=== PATIENT | male | born 1975 | race Caucasian/White ===

== ENCOUNTER 2020-07-24 22:33 | Emergency (ER) | payer SELFPAY ==
[2020-07-24 22:38] VITALS: BP 193/132; PULSE 114; RESP 19; TEMP 37.3; O2SAT 100; BMI 27.3
--- NOTE | 2020-07-24 22:41 | CTR_ITS ---
PROCEDURE INFORMATION: Exam: CT Head Without Contrast Exam date and time: 07/24/2020 11:23 PM Age: 45 years old Clinical indication: Condition or disease; Convulsions or seizures; Unspecified; Patient HX: New onset seizure activity TECHNIQUE: Imaging protocol: Computed tomography of the head without contrast. Radiation optimization: All CT scans at this facility use at least one of these dose optimization techniques: automated exposure control; mA and/or kV adjustment per patient size (includes targeted exams where dose is matched to clinical indication); or iterative reconstruction. COMPARISON: No relevant prior studies available. RADIATION DOSE METRICS: Total DLP (mGy-cm): 902.15 FINDINGS: Brain: No acute intracranial hemorrhage or mass effect. No definite acute infarct by CT. MRI could be more sensitive/specific for detection, as clinically directed. Cerebral ventricles: Ventricle size is normal for age. Bones/joints: No definite acute skull fracture. Paranasal sinuses: Included paranasal sinuses are essentially clear. Mastoid air cells: No significant acute finding. CT/CT head wo con* [id number] IMPRESSION: 1. No acute intracranial hemorrhage or mass effect. 2. No definite acute infarct by CT, see above. 3. Other findings discussed above. Radiation Dose CTDIVOL = (mGy): DLP = 902.15 (mGy-cm)
[2020-07-24 22:42] VITALS: PULSE 113; RESP 22; O2SAT 100
--- NOTE | 2020-07-24 22:42 | ECG_ITS ---
[facility] Test Date: 2020-07-24 Pat Name: Romel Joyce Department: Room: Gender: Male [employer] Floor [employer] Wall Applier: : 1975 Requested By: Jalen Smith Order Number: [id number] Myriam MD: Ed Bagley M.D. Measurements Intervals [place] Rate: 103 P: 39 NC: 176 QRS: 23 QRSD: 87 T: -12 QT: 351 QTc: 461 Interpretive Statements SINUS TACHYCARDIA MODERATE VOLTAGE CRITERIA FOR LVH, CONSIDER NORMAL VARIANT [MEETS CRITERIA IN ONE OF: R(aVL), S(V1), R(V5), R(V5/V6)+S(V1)] POSSIBLE SEPTAL MYOCARDIAL INFARCTION , OF INDETERMINATE AGE [30 ms Q WAVE IN V1/V2] No previous ECG available for comparison Electronically Signed On 07-25-2020 16:18:48 CDT by Ed Bagley M.D. [id number]
--- NOTE | 2020-07-24 22:47 | ED_ITS ---
HPI - Seizure General: Chief Complaint: Seizure Stated Complaint: seizure and HTN Time Seen by Provider: 07/24/20 22:34 Source: patient and EMS Mode of arrival: EMS Limitations: no limitations History of Present Illness: HPI Narrative: 45-year-old male who states that he was at home and had a seizure roughly an hour and a half ago. He has no history of seizures. He states he do not remember before after he describes waking up in EMS being there. He denies any headache or chest pain. States he feels improved currently. He has had no recent illness denies any vomiting or diarrhea. He does have a history of high blood pressure. Seizure History: No Place: Home Associated symptoms: Deny chest pain, chills or fever(s) Review of Systems Const: Denies: fever(s), chills, body aches or change in appetite Eyes: Denies: blurry vision or eye discomfort ENMT: Denies: throat pain or dental pain Card: Denies: chest pain Resp: Denies: dyspnea GI: Denies: abdominal pain, nausea, vomiting or diarrhea : Denies: dysuria Musc: Denies: neck pain or back pain Skin/Breast: Denies: rash Neuro: Reports: seizure-like activity; Denies: headache(s) Psych: Denies: depression Rafi/Lymph: Denies: easy bruising All/Imm: Denies: urticaria PFSH ED PFSH: Family History Father Hypertension Social History Smoking and tobacco status: current every day smoker cigarettes Packs smoked per day: 0.5 Second hand smoke exposure: Yes Smoking risk assessment/counseling performed?: No Alcohol intake: never Desire information about alcohol rehabilitation?: No Counseling given: No Desire information about substance/drug rehabilitation?: No Counseling given: No Adopted: No Caregiver/support person: No Lives independently: Yes Household members: significant other Housing: House Marital status: Single Number of children: 0 Highest education level completed: Some College, No Degree service: No Current occupational status: unemployed History of recent travel: No Physical Exam Const: COMMON NORMALS: no acute distress, patient oriented x3 and healthy appearing HENMT: COMMON NORMALS: normocephalic and atraumatic HEAD & SCALP: normocephalic and atraumatic Eye: COMMON NORMALS: Equal, round and reactive pupils present and EOMs intact bilaterally PUPIL: Yes Equal, round and reactive pupils present Neck/C-Spine: COMMON NORMALS: full ROM and supple Chest: COMMONS NORMALS: normal inspection of the chest and normal palpation of entire chest wall Resp: COMMON NORMALS: normal respiratory effort, No retractions, No use of accessory muscles and clear to auscultation bilaterally AUSCULTATION: clear to auscultation bilaterally Cardio: COMMON NORMALS: regular rate, regular rhythm and No murmurs present (Cardio) RATE: regular rate RHYTHM: regular rhythm GI: COMMON NORMALS: Normal to inspection, nondistended, normoactive bowel sounds present, Soft to palpation, non-tender and no masses PALPATION: Yes Soft to palpation Extremity: COMMON NORMALS: normal to inspection and full ROM Neuro: COMMON NORMALS: patient oriented x3, moves all extremities and no focal motor deficits Psych: COMMON NORMALS: mental status grossly normal, Normal thought process present and cooperative THOUGHT PROCESS: Normal thought process present Skin: COMMON NORMALS: no rashes or lesions noted and no wounds GENERAL SKIN EXAM: no rashes or lesions noted Course Vital Signs: Vital signs: Vital Signs Temperature 99.1 F 07/24/20 22:38 Pulse Rate 85 07/25/20 00:27 Respiratory Rate 23 H 07/25/20 00:27 Blood Pressure 160/113 07/25/20 00:27 Pulse Oximetry 95 07/25/20 00:27 MDM - Seizure MDM Narrative: Medical decision making narrative: Patient presents here with new onset seizure. He has been well-appearing here and seizure-free. He does have some hypertension which is improved here with labetalol and I will increase his amlodipine at home. EKG and CT head is normal. He is to follow-up his PCP and return if worsening. He understands agrees to plan. Lab Data: Labs: Lab Results 07/24/20 Range/Units 23:00 Sodium 134 L (136-145) mmol/L Potassium 3.5 (3.5-5.1) mmol/L Chloride 98 (98-107) mmol/L Carbon Dioxide 20 L (22-29) mmol/L Anion Gap 19.5 H (5-19) BUN 11 (6-20) mg/dL Creatinine 0.6 L (0.7-1.2) mg/dL GFR Calculation 147.0 H (90-130) mL/min Glucose 118 H (65-115) mg/dL Calculated Osmolal ity 278 L (285-295) mOsm/k g Calcium 8.7 (8.5-10.5) mg/dL Total Bilirubin 2.4 H (0.15-1.2) mg/dL AST 195 H (0-40) U/L ALT 157 H (0-41) U/L Alkaline Phosphata se 117 (40-130) IU/L Total Protein 7.6 (6.6-8.7) g/dL Albumin 3.9 (3.5-5.2) g/dL Globulin 3.7 (1.3-4.6) g/dL EKG Data^: EKG 1: Attestation: I personally reviewed and interpreted this EKG as follows: EKG interpretation date: 07/24/20 EKG interpretation time: 22:52 Interpretation: sinus tach hr [address] or t wave abnormalities qrs 87 qtc 411 Discharge Plan Discharge Patient Disposition: Home Clinical Impression: New onset seizure, Hypertension Condition: Stable Prescriptions: Changed amlodipine 10 mg tablet 20 mg PO DAILY 30 Days Qty: 30 RF: 0 No Action prazosin 2 mg capsule 2 mg PO BID 30 Days Qty: 30 RF: 2 quetiapine [Seroquel] 50 mg tablet 50 mg PO .bedtime 30 Days Qty: 30 RF: 0 Discharge Orders: Discharge ED (Routine); Ordered 07/25/20 Ordered By: Jalen Smith Discharge Diet: Advance as tolerated Discharge Activity: Resume usual activity Patient Instructions: New-Onset Seizure in Adults (ED) Coding Level of Care Code ED Electrical Equipment Assembler for Chg Fwd Exam Comprehensive
[2020-07-24 23:08] VITALS: BP 148/94; PULSE 85; RESP 20; O2SAT 99
[2020-07-24] MEDS: labetalol 5 mg/mL SDV 20mL 10 MG IVP (23:09)
[2020-07-24 23:10] VITALS: BP 148/94; PULSE 84; RESP 19; O2SAT 98
[2020-07-24 23:30] LABS: Alanine Aminotransferase 157 U/L (0-41); Albumin Level 3.9 g/dL (3.5-5.2); Alkaline Phosphatase 117 IU/L (40-130); Anion Gap 19.5 (5-19); Aspartate Amino Transferase 195 U/L (0-40); Blood Urea Nitrogen 11 mg/dL (6-20); Calcium 8.7 mg/dL (8.5-10.5); Carbon Dioxide 20 mmol/L (22-29); Chloride 98 mmol/L (98-107); Globulin 3.7 g/dL (1.3-4.6); Glucose 118 mg/dL (65-115); Osmolality Calculated 278 mOsm/kg (285-295); Potassium 3.5 mmol/L (3.5-5.1); Sodium 134 mmol/L (136-145); Total Bilirubin 2.4 mg/dL (0.15-1.2); Total Protein 7.6 g/dL (6.6-8.7)
[2020-07-25] VITALS: BP 160/113; PULSE 85; RESP 23; O2SAT 95
[2020-07-25 00:27] VITALS: BP 160/113; PULSE 85; RESP 23; O2SAT 95
== END 2020-07-25 00:28 | disposition home or self-care (01) ==
PROVIDERS: Emergency Provider Emergency Medicine
DX: R56.9 Unspecified convulsions (principal); I10 Essential (primary) hypertension; F17.210 Nicotine dependence, cigarettes, uncomplicated
CPT/HCPCS: 70450; 80053; 93005; 96374; 99284; J3490

== ENCOUNTER 2020-07-25 00:50 | Emergency (ER) | payer SELFPAY ==
[2020-07-25] VITALS (10 sets, daily range): BP systolic 148–173; BP diastolic 96–121; PULSE 81–108; RESP 18–25; O2SAT 94–96; BMI 25.7
--- NOTE | 2020-07-25 00:51 | CTR_ITS ---
PROCEDURE INFORMATION: Exam: CT Abdomen And Pelvis With Contrast Exam date and time: 07/25/2020 2:03 AM Age: 45 years old Clinical indication: Abdominal pain; Generalized; Prior surgery; Surgery date: 6+ months; Surgery type: Appy; Additional info: Abd pain TECHNIQUE: Imaging protocol: Computed tomography of the abdomen and pelvis with contrast. Radiation optimization: All CT scans at this facility use at least one of these dose optimization techniques: automated exposure control; mA and/or kV adjustment per patient size (includes targeted exams where dose is matched to clinical indication); or iterative reconstruction. Contrast material: OMNI 300; Contrast volume: 95 ml; Contrast route: INTRAVENOUS (IV); COMPARISON: No relevant prior studies available. RADIATION DOSE METRICS: Total DLP (mGy-cm): 1568.6 FINDINGS: Lungs: The lung bases are clear. Liver: There is fatty infiltration of the liver. Gallbladder and bile ducts: The gallbladder appears partially contracted. No visible gallstones by CT. Ultrasound would be more sensitive for detecting gallstones, if clinically needed. No biliary tree dilation. Pancreas: Unremarkable. Spleen: Unremarkable. Adrenal glands: Unremarkable. Kidneys and ureters: No hydronephrosis of either kidney. No visible ureteral calculus. No perinephric fluid. The kidneys enhance homogeneously Stomach and bowel: Possibility of slightly thickened mucosa/wall in the distal antrum of the stomach and proximal duodenum. This is a nonspecific appearance, and could well be transient on CT, but could also represent evidence for gastritis/duodenitis or peptic ulcer disease. Please correlate clinically. There are no CT findings to strongly suggest diverticulitis. Appendix: Reportedly, there has been prior appendectomy. Intraperitoneal space: No free air, ascites, or bowel distention. Vasculature: No evidence for abdominal aortic aneurysm. Lymph nodes: No retroperitoneal adenopathy. Urinary bladder: Possible mild to moderate diffuse urinary bladder wall thickening. This may be related to the prostate enlargement. While nonspecific, this could also indicate evidence for cystitis. Please correlate clinically. Reproductive: Prostate enlargement with transverse diameter of 4.7 cm. Bones/joints: No significant acute finding. Soft tissues: No significant acute finding. CT/CT abdomen pelvis w con* [id number] IMPRESSION: 1. No free air or bowel distention. 2. Possible thickened mucosa/wall in the distal stomach and proximal duodenum, see above discussion. 3. Partially contracted gallbladder, no visible gallstones by CT. 4. Prostate enlargement and urinary bladder wall thickening, see above. 5. Other findings discussed above. Radiation Dose CTDIVOL = (mGy): DLP = 1568.6 (mGy-cm)
--- NOTE | 2020-07-25 00:54 | W.ED.SEIZURE ---
HPI - Seizure General: Chief Complaint: Seizure Stated Complaint: seizure Time Seen by Provider: 07/25/20 00:51 Source: patient and family Mode of arrival: ambulatory Limitations: no limitations and altered mental status History of Present Illness: HPI Narrative: 45-year-old male who was seen here earlier for a seizure. He had been cleared here in driving home and had a seizure on his way home per . Patient had a tonic-clonic seizure and is currently postictal. He is diaphoretic and not able answer questions due to postictal. He does follow some commands and is alert at this time. He had never had a seizure before today. He said no recent illnesses. Seizure History: No Associated symptoms: Deny chest pain, chills or fever(s) Review of Systems Const: Denies: fever(s), chills, body aches or change in appetite Eyes: Denies: blurry vision or eye discomfort ENMT: Denies: throat pain or dental pain Card: Denies: chest pain Resp: Denies: dyspnea GI: Denies: abdominal pain, nausea, vomiting or diarrhea : Denies: dysuria Musc: Denies: neck pain or back pain Skin/Breast: Denies: rash Neuro: Reports: seizure-like activity Psych: Denies: depression Rafi/Lymph: Denies: easy bruising All/Imm: Denies: urticaria PFSH ED PFSH: Family History Father Hypertension Social History Smoking and tobacco status: current every day smoker cigarettes Packs smoked per day: 0.5 Second hand smoke exposure: Yes Smoking risk assessment/counseling performed?: No Alcohol intake: never Desire information about alcohol rehabilitation?: No Counseling given: No Desire information about substance/drug rehabilitation?: No Counseling given: No Adopted: No Caregiver/support person: No Lives independently: Yes Household members: significant other Housing: House Marital status: Single Number of children: 0 Highest education level completed: Some College, No Degree service: No Current occupational status: unemployed History of recent travel: No Physical Exam Const: COMMON NORMALS: healthy appearing; apparent distress and negative for patient oriented x3 OTHER: post ictal HENMT: COMMON NORMALS: normocephalic and atraumatic HEAD & SCALP: normocephalic and atraumatic Eye: COMMON NORMALS: Equal, round and reactive pupils present and EOMs intact bilaterally PUPIL: Yes Equal, round and reactive pupils present Neck/C-Spine: COMMON NORMALS: full ROM and supple Chest: COMMONS NORMALS: normal inspection of the chest and normal palpation of entire chest wall Resp: COMMON NORMALS: normal respiratory effort, No retractions, No use of accessory muscles and clear to auscultation bilaterally AUSCULTATION: clear to auscultation bilaterally Cardio: COMMON NORMALS: regular rate, regular rhythm and No murmurs present (Cardio) RATE: regular rate RHYTHM: regular rhythm GI: COMMON NORMALS: Normal to inspection, nondistended, normoactive bowel sounds present, Soft to palpation, non-tender and no masses PALPATION: Yes Soft to palpation Extremity: COMMON NORMALS: normal to inspection and full ROM Neuro: COMMON NORMALS: moves all extremities and no focal motor deficits; negative for patient oriented x3 Psych: COMMON NORMALS: cooperative; negative for mental status grossly normal Skin: COMMON NORMALS: no rashes or lesions noted and no wounds GENERAL SKIN EXAM: no rashes or lesions noted Course Vital Signs: Vital signs: Vital Signs Pulse Rate 82 07/25/20 02:54 Respiratory Rate 20 H 07/25/20 02:54 Blood Pressure 156/100 07/25/20 02:54 Pulse Oximetry 95 07/25/20 02:54 MDM - Seizure MDM Narrative: Medical decision making narrative: Patient presents here with seizure. He was seen here earlier with a seizure. Patient's been observed. He has had no other seizures. His blood work and CTs were normal. We will start him on Keppra now and follow-up with neurology. He is return if worsening. Imaging Data^: CT Abd/Pel: Attestation: I personally reviewed and interpreted this imaging study as follows: Radiologist's impression: [address] [place] [address] CT Scan Report Signed Patient: Romel Joyce Unit #: [id number] : 1975 Age/Sex: 45 / M ADM Date: 07/25/20 Loc: ER Room/Bed: Attending Dr: Ordering Provider/Ordering MD: Jalen Smith MD Date of Service: 07/25/20 Procedure(s): CT abdomen pelvis w con* [id number] Accession Number(s): [id number] Report Number: [id number] PROCEDURE INFORMATION: Exam: CT Abdomen And Pelvis With Contrast Exam date and time: 07/25/2020 2:03 AM Age: 45 years old Clinical indication: Abdominal pain; Generalized; Prior surgery; Surgery date: 6+ months; Surgery type: Appy; Additional info: Abd pain TECHNIQUE: Imaging protocol: Computed tomography of the abdomen and pelvis with contrast. Radiation optimization: All CT scans at this facility use at least one of these dose optimization techniques: automated exposure control; mA and/or kV adjustment per patient size (includes targeted exams where dose is matched to clinical indication); or iterative reconstruction. Contrast material: OMNI 300; Contrast volume: 95 ml; Contrast route: INTRAVENOUS (IV); COMPARISON: No relevant prior studies available. RADIATION DOSE METRICS: Total DLP (mGy-cm): 1568.6 FINDINGS: Lungs: The lung bases are clear. Liver: There is fatty infiltration of the liver. Gallbladder and bile ducts: The gallbladder appears partially contracted. No visible gallstones by CT. Ultrasound would be more sensitive for detecting gallstones, if clinically needed. No biliary tree dilation. Pancreas: Unremarkable. Spleen: Unremarkable. Adrenal glands: Unremarkable. Kidneys and ureters: No hydronephrosis of either kidney. No visible ureteral calculus. No perinephric fluid. The kidneys enhance homogeneously Stomach and bowel: Possibility of slightly thickened mucosa/wall in the distal antrum of the stomach and proximal duodenum. This is a nonspecific appearance, and could well be transient on CT, but could also represent evidence for gastritis/duodenitis or peptic ulcer disease. Please correlate clinically. There are no CT findings to strongly suggest diverticulitis. Appendix: Reportedly, there has been prior appendectomy. Intraperitoneal space: No free air, ascites, or bowel distention. Vasculature: No evidence for abdominal aortic aneurysm. Lymph nodes: No retroperitoneal adenopathy. Urinary bladder: Possible mild to moderate diffuse urinary bladder wall thickening. This may be related to the prostate enlargement. While nonspecific, this could also indicate evidence for cystitis. Please correlate clinically. Reproductive: Prostate enlargement with transverse diameter of 4.7 cm. Bones/joints: No significant acute finding. Soft tissues: No significant acute finding. CT/CT abdomen pelvis w con* [id number] IMPRESSION: 1. No free air or bowel distention. 2. Possible thickened mucosa/wall in the distal stomach and proximal duodenum, see above discussion. 3. Partially contracted gallbladder, no visible gallstones by CT. 4. Prostate enlargement and urinary bladder wall thickening, see above. 5. Other findings discussed above. Discharge Plan Discharge Patient Disposition: Home Clinical Impression: New onset seizure Condition: Stable Prescriptions: New Keppra 500 mg tablet 500 mg PO BID Qty: 60 RF: 0 No Action prazosin 2 mg capsule 2 mg PO BID 30 Days Qty: 30 RF: 2 quetiapine [Seroquel] 50 mg tablet 50 mg PO .bedtime 30 Days Qty: 30 RF: 0 amlodipine 10 mg tablet 20 mg PO DAILY 30 Days Qty: 30 RF: 0 Discharge Orders: Discharge ED (Routine); Ordered 07/25/20 Ordered By: Jalen Smith Referrals: Caitlin Zimmerman MD [Physician] - 1-3 days Discharge Diet: Advance as tolerated Discharge Activity: Resume usual activity Patient Instructions: Recurrent Seizures Adult (ED) Coding Level of Care Code ED Principal Network Architect for Chg Fwd Exam Comprehensive
[2020-07-25] MEDS: LORazepam 2 mg/mL INJ 1 mL 1 MG IVP (01:30)
[2020-07-25] MEDS: iohexol 300 mg/mL 100 mL Btl IV (02:18)
[2020-07-25] MEDS: labetalol 5 mg/mL SDV 20mL 10 MG IVP (02:47)
--- NOTE | 2020-07-25 12:02 | DCPLANNER ---
recruiter account manager had message to schedule a follow up appointment for patient with Dr. Zimmerman. recruiter account manager emailed patients information to Emily in Dr. Beltran office. Patients information will be printed and reviewed. Clinic will call patient with appointment information.
--- NOTE | 2020-07-27 13:55 | DCPLANNER ---
Patient has a follow up appointment scheduled for Saturday, August 17, 2020 at 11:00 with Stephon. Clinic will call patient with appointment information.
--- NOTE | 2020-09-07 07:09 | DCPLANNER ---
Patient had a followup appointment scheduled for 08.17.[address] Beltran office - patient did not attend appointment.
== END 2020-07-25 03:30 | disposition home or self-care (01) ==
PROVIDERS: Emergency Provider Emergency Medicine
DX: G40.89 Other seizures (principal); F17.210 Nicotine dependence, cigarettes, uncomplicated
CPT/HCPCS: 74177; 96374; 96375; 99284; J1953; J2060; J3490; Q9967